=== PATIENT | female | born 1960 | race Asian ===

== ENCOUNTER 2017-07-03 07:37 | Day surgery (SDC) | payer MEDICAID ==
[~2017-07-03 07:37] MED LIST: CEFAZOLIN 2 GM/50 ML (PMX) 50 ML IVPB; EPHEDrine SULFATE 50 MG/5 ML SYG; SOD CHLORIDE 0.9% 1,000 ML IV
[2017-07-03 10:46] LABS: ADD MAN DIFF? NO
[2017-07-03 10:52] LABS: WHITE BLOOD COUNT 4.9 10^3/ul (4.8-10.8)
[2017-07-03 10:52] LABS: BASOPHILS % 0.2 % (0.0-2.0); EOSINOPHILS % 0.8 % (0.0-7.0); HEMATOCRIT 41.9 % (37.0-47.0); HEMOGLOBIN 13.5 g/dl (12.0-16.0); LYMPHOCYTES # 1.8 10^3/ul (0.8-2.9); LYMPHOCYTES % 35.9 % (15.0-51.0); MEAN CORPUSCULAR HEMOGLOBIN 27.4 pg (29.0-33.0); MEAN CORPUSCULAR HGB CONC 32.2 g/dl (32.0-37.0); MEAN PLATELET VOLUME 9.6 fl (7.4-10.4); MONOCYTE # 0.3 10^3/ul (0.3-0.9); MONOCYTES % 6.9 % (0.0-11.0); NEUTROPHIL # 2.8 10^3/ul (1.6-7.5); NEUTROPHILS % 55.8 % (39.0-77.0); PLATELET COUNT 285 10^3/UL (140-415); RED BLOOD COUNT 4.93 10^6/ul (4.20-5.40); RED CELL DISTRIBUTION WIDTH 13.3 % (11.5-14.5)
[2017-07-03 11:05] LABS: ANION GAP 17 (8-16); CARBON DIOXIDE 29 mmol/L (21-31); CHLORIDE 107 mmol/L (97-110); GLUCOSE 96 mg/dl (70-220)
[2017-07-03 11:06] LABS: BLOOD UREA NITROGEN 11 mg/dl (7-20); CALCIUM 9.3 mg/dl (8.4-10.2)
[2017-07-03 11:08] LABS: SODIUM 149 mmol/L (135-144)
[2017-07-03 11:19] LABS: PROTIME 12.2 Sec (11.9-14.9)
[2017-07-03 11:20] LABS: PARTIAL THROMBOPLASTIN TIME 32.5 Sec (25.0-35.0)
[2017-07-03] MEDS ORDERED: PROPOFOL 20 ML (12:54)
[2017-07-03] MEDS ORDERED: FENTAnyl 50 MCG/ML VIAL (12:55)
[2017-07-03] MEDS ORDERED: MIDAZOLAM 1 MG/ML 2 ML INJ (12:55)
[2017-07-03] MEDS ORDERED: ONDANSETRON 4 MG INJ (12:55)
[2017-07-03] MEDS ORDERED: METOCLOPRAMIDE 10 MG INJ (12:55)
[2017-07-03] MEDS ORDERED: ONDANSETRON 4 MG INJ IV (13:30)
[2017-07-03] MEDS ORDERED: OXYCODONE/ACETAMINOPHEN (5/325) TAB PO ×2 (13:30)
[2017-07-03] MEDS ORDERED: MEPERIDINE 25 MG INJ IV (13:30)
[2017-07-03] MEDS ORDERED: HYDROmorphONE (0.2 MG/ML) 10ML SYG IV ×3 (13:30)
[2017-07-03] MEDS ORDERED: DIPHENHYDRAMINE 50 MG INJ IV (13:30)
[2017-07-03] MEDS ORDERED: CEFAZOLIN 1 GM INJ (13:59)
[2017-07-03] MEDS ORDERED: HYDROCODONE/APAP (7.5/325) TAB PO (14:00)
== END 2017-07-03 16:00 | disposition home or self-care (01) ==
LOC: SDS 07:37
DX: N60.31 Fibrosclerosis of right breast (principal)
CPT/HCPCS: 19301; 71045; 80048; 85025; 85610; 85730; 88307; 93005